=== PATIENT | female | born 1940 | race Caucasian/White ===

== ENCOUNTER 2017-09-18 10:56 | Observation (INO) | payer MEDICARE, SELFPAY ==
[2017-09-18] VITALS (9 sets, daily range): BP systolic 95–171; BP diastolic 66–85; PULSE 57–68; RESP 16–21; TEMP 36.5–36.7; O2SAT 93–99; BMI 31.2; BMI 31.5
--- NOTE | 2017-09-18 11:10 | RAD_ITS ---
STUDY: X-RAY CHEST REASON FOR EXAM: Female, 77 years old. Chest pain TECHNIQUE: Single AP portable view of the chest. COMPARISON: None. FINDINGS: A calcified granuloma is seen in the right upper lobe. The lungs are clear and expanded. There is no demonstrated pleural abnormality. Normal size heart. Normal mediastinum and lit. Normal visualized pulmonary arteries. Normal visualized aortic arch and descending thoracic aorta. Normal visualized thoracic spine. There is degenerative osteoarthritis of the bilateral shoulders. There is no demonstrated abnormality of the visualized soft tissue structures of the upper abdomen. RAD/Chest 1 View (Portable) IMPRESSION: Degenerative changes, as described above. No demonstrated acute cardiopulmonary process. Electronically Signed: Kip Tim MD at 12:00 EDT Tel , Service support ,
--- NOTE | 2017-09-18 11:10 | EKG12_ITS ---
Test Reason : CP Blood Pressure : / mmHG Vent. Rate : 060 BPM Atrial Rate : 060 BPM P-R Int : 160 ms QRS Dur : 072 ms QT Int : 416 ms P-R-T Axes : 023 027 067 degrees QTc Int : 416 ms Normal sinus rhythm Normal ECG Confirmed by OBI FISH MD ([id number]), writer editor MAKENNA BOWDEN ([id number]) on 09/22/2017 2:26:13 PM Referred By: SARAH Confirmed By:OBI FISH MD
--- NOTE | 2017-09-18 11:13 | ED.DCSUM_ITS ---
- ER Visit Summary Date of Service: 09/18/17 Chief Complaint: Chest pain History of Present Illness: The patient is a 77 F who presents with chest pain. Over the past 2 weeks she has been having a heaviness in her substernal area that comes and goes. It does get worse with exertion. It improves with rest. She has associated dyspnea with this. Her left arm gets heavy during these episodes. She saw Dr. Gomez today and he sent her here for a cardiac catheterization for unstable angina. Currently she is pain-free. She has not had any stress test recently. She has no history of any coronary disease Physical Examination: Vital signs reviewed. HEENT exam unremarkable. Heart is regular rate and rhythm without murmurs. Lungs are clear to auscultation. Abdomen is soft and nontender. Extremities reveal no edema. Peripheral pulses are equal. Skin exam normal. Neurologic exam normal. Test Results: EKG is normal sinus rhythm with T-wave inversions in V1 and V2. No other ST changes. Chest x-ray reveals chronic changes. Labs are normal. Emergency Department Course and Treatment: Patient was given aspirin. She still had no pain in the emergency department. Due to her symptoms I feel she should be admitted for cardiac rule out. Treatment Plan: [] Disposition: Admit Impression: Chest pain This note was generated with [employer] dictation software. It may contain incorrect words, spelling, and punctuation that were not noted in review of the chart prior to signing ED Disposition - Plan for ED Patient: Chief Complaint: Chest Pain Referrals: Javier Lorenzo [Primary Care Provider] -
[2017-09-18 11:28] LABS: Absolute Lymphocyte Count 2.04 X10^3/ul (0.83-4.51); Absolute Neutrophil Count 2.9 X10^3/uL (2.0-7.7); Basophil# 0.02 X10^3/uL; Basophil% 0.3 % (0-1); Eosinophil# 0.07 X10^3/uL; Eosinophils% 1.2 % (0-5); Hematocrit 44.8 % (37-47); Hemoglobin 15.1 g/dl (12.0-15.0); Lymphocyte # 2.04 X10^3/ul (4.0); Lymphocyte % 35.6 % (19-41); Mean Corp Hgb Conc 33.7 g/gl (32-36); Mean Corpuscular Hgb 30.4 pg (27.0-32.0); Mean Corpuscular Volume 90.3 fL (81-99); Mean Platelet Vol. 10.3 fl (6.2-12.0); Monocyte# 0.65 X10^3/uL; Monocyte% 11.3 % (0-10); Neutrophil # 2.94 X10^3/uL (2.7-7.7); Neutrophil % 51.4 % (47-70); POSITIVE COUNT NO; POSITIVE DIFFERENTIAL NO; POSITIVE MORPHOLOGY NO; Platelet Count 150 K/mm3 (150-450); RBC Distribution Width CV 12.8 % (11.6-14.6); RBC Distribution Width SD 41.6 fl (35.1-43.9); Red Blood Count 4.96 M/mm3 (4.2-5.4); White Blood Count 5.7 K/mm3 (4.4-11.0)
[2017-09-18] MEDS: Aspirin 81 MG TAB.CHEW 324 MG PO (11:34)
[2017-09-18 11:46] LABS: Anion Gap 8 (5-15); BUN 21 mg/dL (7-18); BUN/Creat Ratio 26.8 RATIO (10-20); Calcium,Total 9.1 mg/dL (8.5-10.1); Chloride 107 mmol/L (98-107); Creatinine, Serum 0.78 mg/dL (0.55-1.02); EST Glomerular Filtration Rate 75 mL/min (>60); Est Glom Filt Rate - Afr Amer 91 mL/min (>60); Estimated Creatinine Clearance 34.99 ml/min; Glucose 96 mg/dL (74-106); Potassium 4.2 mmol/L (3.5-5.1); Sodium Level 141 mmol/L (136-145)
--- NOTE | 2017-09-18 14:01 | HP.PCM_ITS ---
Problem List (1) CVA (cerebral vascular accident) Status: Acute History of Present Illness Date of Admission: 09/18/17 The patient is a 77 year old F with past medical history of remote CVA for which she is on Plavix, essential hypertension and dyslipidemia who presented to the emergency room today due to chest pain. For the past 2 weeks she has had chest heaviness in the substernal region radiating to her left arm. This is worse with exertion, it is associated with shortness of breath. She denies personal history of coronary artery disease.She denies any palpitations, rapid heartbeat or dizziness. Her sees Dr. Gomez a recorder of deeds in [place] , who was contacted and he recommended the patient come to the emergency room for possible admission and further evaluation with a left heart catheterization. In the Emergency room her cardiac biomarkers were normal and her 12-lead EKG showed normal sinus rhythm with T-wave inversions in V1 and V2. We are placing her in the progressive care unit for further evaluation and management. Her who is at bedside is requesting a left heart catheterization to be performed instead of a stress test as was recommended by Dr. Gomez. Past Medical History Allergies cyclobenzaprine [From Flexeril] Allergy (Verified 09/18/17 10:57) Hives SULFA Allergy (Uncoded 09/18/17 10:57) Hives Home Medications: Ambulatory Orders Medication Instructions Recorded Aspirin [Aspirin, Baby] 81 mg PO DAILY@0800 09/18/17 Calcium Carbonate/Vitamin D3 1 each PO BID 09/18/17 [Calcium 600-Vit D3 200 Tablet] Clopidogrel Bisulfate [Plavix] 75 mg PO DAILY 09/18/17 Metoprolol(XL)Succ [Toprol Xl 100 mg PO DAILY 09/18/17 (Beta Thuy)] Multivitamin [Multiple Vitamins] 1 each PO DAILY 09/18/17 Paroxetine [Paxil] 10 mg PO DAILY 09/18/17 Simvastatin [Zocor] 20 mg PO QHS 09/18/17 Vit C/E/Zn/Coppr/Lutein/Zeaxan 1 each PO DAILY 09/18/17 [Preservision Areds 2 Softgel] Smoking Status: Never smoker Review of Systems Comment: All Systems were reviewed with pertinent positives mentioned in the HPI above. VTE Information - Inpt Only VTE Present on Admission: No VTE Mechan Device Prophylaxis: SCD's VTE Pharm Prophylaxis ordered?: Yes Patient Problems: Active and Suspected Problems CVA (cerebral vascular accident) (Acute) - Physical Exam General: Alert, Oriented x3 Neck: Supple Lungs: Clear to auscultation Cardiovascular: Regular rate Abdomen: Bowel Sounds Present, Soft Neurological: Cranial nerves II-XII grossly intact, Motor Exam 5/5 strength throughout Vital Signs Temp Pulse Resp BP Pulse Ox 97.7 F L 61 18 164/66 H 98 09/18/17 13:18 09/18/17 13:18 09/18/17 13:18 09/18/17 13:18 09/18/17 13:18 Oxygen Flow Rate (L/min) 2 Oxygen Delivery Method Nasal Cannula Weight: 75.7 kg Body Mass Index (BMI) 31.5 Assessment/Plan Active and Suspected Problems CVA (cerebral vascular accident) (Acute) 1. Chest pain; this most likely represents unstable angina, we will continue serial cardiac enzymes, cardiology will be consulted for further ischemic workup. 2. Old CVA; the patient is on Plavix for secondary stroke prevention which we will continue. 3. Dyslipidemia; she is on a statin. 4. Essential hypertension; she takes metoprolol. 5. SCDs for DVT prophylaxis. Code Visit OBSV E&M: 78623 Initial observation care L3
--- NOTE | 2017-09-18 15:20 | ECHOD_ITS ---
Reason For Study: CHEST PAIN Procedure This was a 2D Doppler, Color Flow transthoracic echocardiogram. Contrast injection was performed. The study was technically difficult. Exam performed portable in patient room. Left Ventricle Normal LV size. Left ventricular systolic function is normal. The estimated ejection fraction is 65 %. Unable to assess diastolic dysfunction. No regional wall motion abnormalities noted. Right Ventricle Normal RV size. Normal systolic function. Atria Normal left atrium. Normal right atrium. Mitral Valve Normal mitral valve. Trivial mitral valve insufficiency. Tricuspid Valve Normal tricuspid valve. Unable to estimate RV systolic pressure, pulmonary artery pressure probably normal. Aortic Valve Normal aortic valve. Pulmonic Valve Normal pulmonic valve. Great Vessels Normal aortic root. The pulmonary artery is normal size. Normal inferior vena cava. Pericardium/Pleural No pericardial effusion. Medication Diluted definity 4ml given slow IV push to enhance endocardial definition. MMode/2D Measurements & Calculations LVIDd: 4.8 cm IVSd: 0.77 cm Ao root diam: 3.1 cm LVIDs: 3.4 cm LVPWd: 0.83 cm RVDd: 3.9 cm FS: 29.0 % LAV(MOD-bp): 36.3 ml LVAd ap4: 28.0 cm2 SV(MOD-sp4): 67.2 ml LAV(MOD-bp) Indexed: 20.8 ml/m2 EDV(MOD-sp4): 93.4 ml LAV(MOD-sp2): 29.3 ml EDV(sp4-el): 91.9 ml LAV(MOD-sp4): 39.9 ml LVAs ap4: 12.8 cm2 ESV(MOD-sp4): 26.2 ml ESV(sp4-el): 26.8 ml EF(MOD-sp4): 72.0 % EF(sp4-el): 70.9 % SV(sp4-el): 65.1 ml LA A4 area: 15.8 cm2 RA A4 area: 12.3 cm2 Doppler Measurements & Calculations MV E max christ: 66.9 cm/sec Lat Peak E' Christ: 3.3 cm/sec Med Peak E' Christ: 4.4 cm/sec MV A max christ: 101.6 cm/sec E/E' lat: 20.3 E/E' med: 15.2 MV E/A: 0.66 Ao V2 max: 177.1 cm/sec LV V1 max: 125.7 cm/sec PA V2 max: 109.6 cm/sec Ao max P.5 mmHg LV V1 max P.3 mmHg PI end-d christ: 108.0 cm/sec Interpretation Summary Normal LV size. Left ventricular systolic function is normal. The estimated ejection fraction is 65 %. Unable to estimate RV systolic pressure, pulmonary artery pressure probably normal. Contrast injection was performed. Ordering Physician: Jose Harper Referring Physician: ZAINAB MCFARLANE Performed By: Ailyn Abdi, REECE, RVT
--- NOTE | 2017-09-18 15:47 | CON.PCM_ITS ---
Reason for Consult Date of Consultation: 09/18/17 Reason for Consultation: Chest heaviness History of Present Illness: The patient is a 77 year old F with past medical history of remote CVA for which she is on Plavix, essential hypertension and dyslipidemia who presented to the emergency room today due to chest pain. For the past 2 weeks she has had chest heaviness in the substernal region radiating to her left arm. This is worse with exertion, it is associated with shortness of breath. She denies personal history of coronary artery disease.She denies any palpitations, rapid heartbeat or dizziness. Her sees Dr. Gomez a radio mechanic apprentice in [place] , who was contacted and he recommended the patient come to the emergency room for possible admission and further evaluation with a left heart catheterization. She has not had to take any nitroglycerin for the above discomfort. However she does attest that the frequency of the chest discomfort is getting closer In the Emergency room her cardiac biomarkers were normal and her 12-lead EKG showed normal sinus rhythm with T-wave inversions in V1 and V2. We are placing her in the progressive care unit for further evaluation and management. [] Past Medical History Allergies/Adverse Reactions: Allergies cyclobenzaprine [From Flexeril] Allergy (Verified 09/18/17 10:57) Hives SULFA Allergy (Uncoded 09/18/17 10:57) Hives Home Medications: Ambulatory Orders Medication Instructions Recorded Aspirin [Aspirin, Baby] 81 mg PO DAILY@0800 09/18/17 Calcium Carbonate/Vitamin D3 1 each PO BID 09/18/17 [Calcium 600-Vit D3 200 Tablet] Clopidogrel Bisulfate [Plavix] 75 mg PO DAILY 09/18/17 Metoprolol(XL)Succ [Toprol Xl 100 mg PO DAILY 09/18/17 (Beta Thuy)] Multivitamin [Multiple Vitamins] 1 each PO DAILY 09/18/17 Paroxetine [Paxil] 10 mg PO DAILY 09/18/17 Simvastatin [Zocor] 20 mg PO QHS 09/18/17 Vit C/E/Zn/Coppr/Lutein/Zeaxan 1 each PO DAILY 09/18/17 [Preservision Areds 2 Softgel] Smoking Status: Never smoker Alcohol: None Drugs: None Review of Systems - Review of Systems General: Denies: Fever, Night Sweats, Fatigue Cardiovascular: Reports: Chest Discomfort, Chest Discomfort with Exertion, Shortness of Breath, Shortness of Breath with Exertion. Denies: Orthopnea, PND , Peripheral Edema, Palpitations, Lightheadedness, Dizziness, Near Syncope, Syncope Respiratory: Denies: Cough, Sputum Production, Hemoptysis Gastrointestinal: Denies: Hematemesis, Hematochezia, Melena Genitourinary: Denies: Dysuria, Hematuria Skin: Denies: Rash Subjectve: Pleasant lady in no apparent distress Objective: Vital Signs Temp Pulse Resp BP Pulse Ox 97.7 F L 61 18 164/66 H 98 09/18/17 13:18 09/18/17 13:18 09/18/17 13:18 09/18/17 13:18 09/18/17 14:09 Oxygen Flow Rate (L/min) 2 Oxygen Delivery Method Nasal Cannula Weight: 166 lb 14.239 oz Body Mass Index (BMI) 31.5 General: Awake, Alert, Oriented x 3 HEENT: PERRL, EOMI, Sclera Non Icteric Neck: Supple, Good ROM, No Lymph Node Enlargement Lungs: Clear to auscultation Cardiovascular: Regular Rhythm, Normal S1, Normal S2, No Rubs, No Gallops Murmur Murmur: Grade 1/6, Early Systolic, LLSB Vascular: No Carotid Bruits, Normal Femoral Pulses, Normal Radial Pulses, Normal Dorsalis Pedal Pulse, Normal Posterior Tibial Pulses Abdomen: Bowel Sounds Present, Soft, Non Tender, No HSM, No Organomegaly Extremities: No Cyanosis, No Clubbing, No edema Neurological: No Focal Motor or Sensory Deficit Rhythm: EKG: Sinus rhythm with no acute changes Assessment/Plan 1.Chest pain The patient presents with progressive chest discomfort with exertion going away with rest and although her EKG is without significant changes she does have risk factors in terms of her previous cerebrovascular accident, hypertension recommend that we defer stress testing and proceed to cardiac catheterization. The risk benefits and alternatives have been explained to her and her they understand and agreed to proceed. 2. Hypertension Her blood pressure appears to be under good control at this time we will continue her current medications without any changes. 3. Hyperlipidemia She will continue with high intensity statin at this time. Thank you for allowing me to participate in the care of your patient. Please don't hesitate to call if any issues arise
--- NOTE | 2017-09-18 15:47 | CASEMGMT ---
According to [facility] website, the following are in-network tertiary facilities: [facility], [place], [facility], [facility], [facility], [facility], and . Nicholas MARTINEZ CM
[2017-09-18] MEDS: Calcium Carb/Vitamin D 1 TABLET Tablet PO (17:55)
[2017-09-19] VITALS (14 sets, daily range): BP systolic 121–142; BP diastolic 54–83; PULSE 51–60; RESP 11–18; TEMP 35.7–36.8; O2SAT 95–100
[2017-09-19 05:35] LABS: Absolute Lymphocyte Count 1.85 X10^3/ul (0.83-4.51); Absolute Neutrophil Count 2.9 X10^3/uL (2.0-7.7); Basophil# 0.03 X10^3/uL; Basophil% 0.5 % (0-1); Eosinophil# 0.11 X10^3/uL; Hematocrit 44.6 % (37-47); Hemoglobin 14.7 g/dl (12.0-15.0); International Normalized Ratio 1.1; Lymphocyte # 1.85 X10^3/ul (4.0); Lymphocyte % 33.5 % (19-41); Mean Corpuscular Hgb 30.4 pg (27.0-32.0); Mean Corpuscular Volume 92.1 fL (81-99); Mean Platelet Vol. 10.4 fl (6.2-12.0); Monocyte# 0.67 X10^3/uL; Monocyte% 12.1 % (0-10); Neutrophil # 2.86 X10^3/uL (2.7-7.7); Neutrophil % 51.9 % (47-70); Platelet Count 149 K/mm3 (150-450); Prothrombin Time (Protime)PT. 13.9 SECONDS (11.7-14.9); RBC Distribution Width CV 12.7 % (11.6-14.6); Red Blood Count 4.84 M/mm3 (4.2-5.4); White Blood Count 5.5 K/mm3 (4.4-11.0)
[2017-09-19 05:36] LABS: Partial Thromboplast Time 28.7 Seconds (24.1-36.2)
[2017-09-19 05:37] LABS: POSITIVE COUNT NO; POSITIVE DIFFERENTIAL NO; POSITIVE MORPHOLOGY NO
[2017-09-19 05:46] LABS: Anion Gap 8 (5-15); BUN 21 mg/dL (7-18); BUN/Creat Ratio 31.8 RATIO (10-20); Calcium,Total 8.8 mg/dL (8.5-10.1); Chloride 108 mmol/L (98-107); Creatinine, Serum 0.66 mg/dL (0.55-1.02); EST Glomerular Filtration Rate 92 mL/min (>60); Est Glom Filt Rate - Afr Amer 111 mL/min (>60); Estimated Creatinine Clearance 34.99 ml/min; Glucose 95 mg/dL (74-106); Potassium 4.2 mmol/L (3.5-5.1); Sodium Level 143 mmol/L (136-145)
--- NOTE | 2017-09-19 05:55 | EKG12_ITS ---
Test Reason : AM EKG Blood Pressure : / mmHG Vent. Rate : 059 BPM Atrial Rate : 059 BPM P-R Int : 166 ms QRS Dur : 084 ms QT Int : 434 ms P-R-T Axes : 030 027 066 degrees QTc Int : 429 ms Sinus bradycardia Otherwise normal ECG When compared with ECG of 18-SEP-2017 11:10, MANUAL COMPARISON REQUIRED, DATA IS UNCONFIRMED Confirmed by ABE BEACH, OBI ([id number]), news copy editor MAKENNA BOWDEN ([id number]) on 09/30/2017 2:09:39 PM Referred By: ANUSHA Confirmed By:OBI FISH MD
[2017-09-19] MEDS: Metoprolol(XL)Succ 100 MG Tablet PO (06:34)
[2017-09-19] MEDS: Clopidogrel Bisulfate 75 MG Tablet PO (06:34)
[2017-09-19] MEDS: Aspirin 81 MG TAB.CHEW PO (06:34)
[2017-09-19] MEDS: 0.9% NaCl Peripheral Flush Adult/Peds IV (08:05)
[2017-09-19] MEDS: 0.9% Normal Saline 1,000 ML 15 ML IV (08:05)
--- NOTE | 2017-09-19 08:51 | CL.D_ITS ---
Patient Name: JOSE ELIAS MORRISON Study Date: 09/19/2017 Performing: Jose Harper MD Ht: 61.02 inches 155 cm : 1940 Wt: 167.55 lbs 76 kg Age: 77 Gender: female BSA: 1.75 PROCEDURE(S) PERFORMED JD63-SNX/COR/LV RC29-DQT W OR WO PTCA, SINGLE CORONARY ARTERY CLINICAL PROFILE AND INDICATIONS Indications: New Onset Angina <= 2 months Heart Failure: None Stress/Imaging Stress/Image Study Performed: No Angina Classification Anginal Classification w/in 2 Weeks: CCS III CAD Presentations: Unstable angina. CONCLUSIONS Severe calcified proximal and mid LAD stenosis RECOMMENDATIONS Referred for immediate PCI DESCRIPTION OF PROCEDURE The patient arrived to the procedure lab. The risks and benefits of the procedure as well as a full d escription of our services here and current unavailability of surgical backup were fully explained to the patient and/or their significant other prior to the catheterization. The Timeout was completed, verifying the correct patient and procedure. The patient's procedural site was prepped and draped in the usual fashion. Local anesthetic was given subcutaneously to right groin region with Lidocaine 2%. Using a modified Seldinger technique, arterial access was obtained via the right femoral artery, a 5 Fr sheath was inserted. Left Coronary Artery selective angiography was performed in multiple views u sing a 5 Fr. JL 5 catheter. Right Coronary Artery selective angiography was then performed in multipl e views using a 5 Fr. 3DRC (Levy) catheter. Left Ventriculography was performed in GARCÍA projection using a 5 Fr. Pigtail catheter. LV to AO pullback pressures were then recorded. CORONARY ANGIOGRAPHY DOMINANCE: Right Dominant LEFT HEART ASSESSMENT Left Ventricular Ejection Fraction: by LV Gram 60 % Normal LV wall motion Normal Left Ventricular systolic function LEFT MAIN: Mild calcification, Non-obstructive LEFT ANTERIOR DECENDING ARTERY: PROX LAD: Moderate calcification, 90 % Stenosis MID LAD: 80 % Stenosis DIAGONAL 1: Ostial - 70 ectatic % Stenosis CIRCUMFLEX ARTERY: Mild luminal irregularities OM 2: Mid - 70 % Stenosis RIGHT CORONARY ARTERY: Mild luminal irregularities less than 30% RT PDA: Proximal - 60 % Stenosis COMPLICATIONS PROCEDURE MEDICATIONS Versed 1 mg IV Oxygen: 2 L/min via nasal cannula SUMMARY OF HEMODYNAMIC DATA Time AIR REST ECG 08:21:04 AO 148/69 (104) SA 08:30:54 LV 142/5, 14 08:38:20 LV 136/5, 11 08:38:27 LV 140/-1, 23 08:39:07 LVp 141/0, 19 08:39:13 AOp 149/63 (97) 08:39:18 Signed By Jose Harper MD On 09/19/2017 08:50:20 Jose Harper MD
--- NOTE | 2017-09-19 09:15 | EKG12_ITS ---
Test Reason : CHEST PAIN Blood Pressure : / mmHG Vent. Rate : 053 BPM Atrial Rate : 053 BPM P-R Int : 160 ms QRS Dur : 084 ms QT Int : 460 ms P-R-T Axes : 024 019 042 degrees QTc Int : 431 ms Sinus bradycardia Otherwise normal ECG When compared with ECG of 19-SEP-2017 05:32, MANUAL COMPARISON REQUIRED, DATA IS UNCONFIRMED Confirmed by ABE BEACH, OBI ([id number]), fashion editor MAKENNA BOWDEN ([id number]) on 09/22/2017 2:43:33 PM Referred By: MARTINA Confirmed By:OBI FISH MD
--- NOTE | 2017-09-19 09:39 | CL.I_ITS ---
Patient Name: JOSE ELIAS MORRISON Study Date: 09/19/2017 Performing: Neftali Rodriguez MD Ht: 61.02 inches 155 cm : 1940 Wt: 167.55 lbs 76 kg Age: 77 Gender: female BSA: 1.75 PROCEDURE(S) PERFORMED [id number], SINGLE CORONARY ARTERY CLINICAL PROFILE AND CO-MORBIDITIES Indications: New Onset Angina <= 2 months, ACS <= 24 hrs Heart Failure: None Stress/Imaging Stress/Image Study Performed: No Stress/Image Study Performed: No Angina Classification Anginal Classification w/in 2 Weeks: CCS III CAD Presentations: Unstable angina. Unstable angina. Comorbidities/Risk Factors: Hypertension Dyslipidemia CONCLUSIONS Unsuccessful PCI of the mid LAD; unable to cross with deflated balloon. No inflation performed on an y balloon. CALE III Flow at end of procedure with no evidence of dissection or other new lesions. RECOMMENDATIONS Tx to [facility] for PTCRA of LAD. NTG gtt Heparin gtt. D/w Lesley Shelby at [facility], as well as Dr Harper her primary senior training specialist. WIll place IABP if pt's symptoms worsen. Sheath sutured into place and groin is stable. DESCRIPTION OF PROCEDURE The patient arrived to the procedure lab. The risks and benefits of the procedure as well as a full d escription of our services here and current unavailability of surgical backup were fully explained to the patient and/or their significant other prior to the catheterization. The Timeout was completed, verifying the correct patient and procedure. The patient's procedural site was prepped and draped in the usual fashion. Local anesthetic was given subcutaneously to right groin region with Lidocaine 2% Using a modified Seldinger technique,arterial access was obtained via the right femoral artery, a 5Fr sheath was inserted. Left Coronary Artery selective angiography was performed in multiple views usin g a 5 Fr. JL 5 catheter. Right Coronary Artery selective angiography was then performed in multiple v iews using a 5 Fr. 3DRC (Levy) catheter. Left Ventriculography was performed in GARCÍA projection us ing a 5 Fr. Pigtail catheter. LV to AO pullback pressures were then recorded.The images were reviewed and options discussed. A decision was then made to proceed with an Intervention, IVUS or other adjun ct procedure. Arterial sheath was exchanged for a 6 Fr Sheath 45cm ebu 3.5 Guide catheter was inserted and engaged into the LCA. universal bmw Guide wire was advanced to the LAD. bmw universal Guide wire was inserted as a khadijah wire in diag 1 2.0x12 emerge Balloon catheter was inserted. 1.5x8 emerge Balloon catheter was inserted. 1.25x10 Sprinter Balloon catheter was inserted.. . The arterial sheath was exchanged to a standard sheath and left inplace to be pulled at a later time.. INTERVENTION INFORMATION LESION SITE: LAD (Mid) PROCEDURE: Wires passed down LAD and DIAG, however unable to cross with 1.25 mm deflated balloon d/t calcificati on. Procedure aborted in lieu of need for rotoblation. 6Fr long sheath exchanged for short [address] [facility]. Final cath after wire removal showed no evidence of dissection and CALE III flow. Pt will be transferred to Dr Shelby at [facility] for PTCRA today. Lesion Devices: Arellano .014 BMW [place] Straight 190cm Medtronic 6 Fr EBU3.5 100cm Guide Catheter Farrukh Sci EMERGE MR 2.00x12 BALLOON Arellano .014 [employer] [place] Straight 190cm Farrukh Sci EMERGE MR 1.50x08 BALLOON Medtronic SPRINTER LEGEND RX 1.25x10 BALLOON COMPLICATIONS No Complications PROCEDURE MEDICATIONS Versed 1 mg IV Fentanyl 25 mcg IV Oxygen: 2 L/min via nasal cannula Heparin 6000 unit(s) IV 09/19/2017 08:53:18 Heparin 25,000u / 250ml D5W @ 800 u/hr IV started 09/19/2017 09:36:48 Nitro Tab 0.4 mg PO 09/19/2017 09:31:35 Nitro glycerin 25mg / 250ml D5W @ 5 mcg/min IV started 09/19/2017 09:32:42 Zofran 4 mg IV 09/19/2017 09:32:21 IV Bolus: .9 NaCl 300ml total 09/19/2017 08:52:32 SUMMARY OF HEMODYNAMIC DATA Time AIR REST ECG 08:21:04 AO 148/69 (104) SA 08:30:54 LV 142/5, 14 08:38:20 LV 136/5, 11 08:38:27 LV 140/-1, 23 08:39:07 LVp 141/0, 19 08:39:13 AOp 149/63 (97) 08:39:18 Signed By Neftali Rodriguez MD On 09/19/2017 09:39:25 Signed By Neftali Rodriguez MD On 09/19/2017 09:38:59 Neftali Rodriguez MD
--- NOTE | 2017-09-19 10:14 | PCM.DC ---
- Discharge Diagnoses Current Active Problems: Current Active and Chronic Problems CVA (cerebral vascular accident) (Acute) unstable angina severe calcific prox and mid LAD stenosis. CAD You will use the following diet at home:: Cardiac Discharge Activity: Return to Normal Activity Allergies/Adverse Reactions: Allergies cyclobenzaprine [From Flexeril] Allergy (Verified 09/18/17 10:57) Hives SULFA Allergy (Uncoded 09/18/17 10:57) Hives Medications to take at Discharge Aspirin [Aspirin, Baby] 81 mg PO DAILY@0800 09/18/17 Calcium Carbonate/Vitamin D3 [Calcium 600-Vit D3 200 Tablet] 1 each PO BID 09/18/17 Clopidogrel Bisulfate [Plavix] 75 mg PO DAILY 09/18/17 Metoprolol(XL)Succ [Toprol Xl (Beta Thuy)] 100 mg PO DAILY 09/18/17 Multivitamin [Multiple Vitamins] 1 each PO DAILY 09/18/17 Paroxetine [Paxil] 10 mg PO DAILY 09/18/17 Simvastatin [Zocor] 20 mg PO QHS 09/18/17 Vit C/E/Zn/Coppr/Lutein/Zeaxan [Preservision Areds 2 Softgel] 1 each PO DAILY 09/18/17 Primary Care Physician: Javier Lorenzo [Primary Care Provider] - In 1 Week
--- NOTE | 2017-09-19 10:18 | DS.PCM_ITS ---
Discharge Date and Diagnosis - Problem List Patient Problems: Active and Suspected Problems CVA (cerebral vascular accident) (Acute) Date of Admission: 09/18/17 Date of Discharge: 09/19/17 - Primary Discharge Diagnosis Active and Suspected Problems CVA (cerebral vascular accident) (Acute) Hospital Course and Treatment Summary of Care Provided: The patient is a 77 year old F with past medical history of remote CVA for which she is on Plavix, essential hypertension and dyslipidemia who presented to the emergency room today due to chest pain. For the past 2 weeks she has had chest heaviness in the substernal region radiating to her left arm. This is worse with exertion, it is associated with shortness of breath. She denies personal history of coronary artery disease.She denies any palpitations, rapid heartbeat or dizziness. Her sees Dr. Gomez a mechanical and auto body car checker in [place] , who was contacted and he recommended the patient come to the emergency room for possible admission and further evaluation with a left heart catheterization. In the Emergency room her cardiac biomarkers were normal and her 12-lead EKG showed normal sinus rhythm with T-wave inversions in V1 and V2. We are placing her in the progressive care unit for further evaluation and management. She was seen by cardiology and she underwent LHC and it showed severe calcific proximal and mid LAD. PCI was unsuccessful and she was therefore transferred to [facility] for a rotablator. She was transferred in a stable condition. Discharge Diet: No Restrictions Home Medications: Medications to take at Discharge Aspirin [Aspirin, Baby] 81 mg PO DAILY@0800 09/18/17 Calcium Carbonate/Vitamin D3 [Calcium 600-Vit D3 200 Tablet] 1 each PO BID 09/18 Clopidogrel Bisulfate [Plavix] 75 mg PO DAILY 09/18/17 Metoprolol(XL)Succ [Toprol Xl (Beta Thuy)] 100 mg PO DAILY 09/18/17 Multivitamin [Multiple Vitamins] 1 each PO DAILY 09/18/17 Paroxetine [Paxil] 10 mg PO DAILY 09/18/17 Simvastatin [Zocor] 20 mg PO QHS 09/18/17 Vit C/E/Zn/Coppr/Lutein/Zeaxan [Preservision Areds 2 Softgel] 1 each PO DAILY Primary Care Physician: Javier Lorenzo [Primary Care Provider] - In 1 Week Medical Necessity - Tobacco Use Smoking Status: Never smoker Meaningful Use Info Meaningful Use Diagnoses (Choose all that apply): None applicable Code Visit OBSV E&M: 79780 Observation care discharge
--- NOTE | 2017-09-19 11:05 | NURSING ---
Sheath site noted to be saturated at this time. Dressing taken down. Continuous slow oozing noted from sheath insertion site. equipment operator/laborer staff notified by Alanna Cabrera RN. Informed that Dr. Rodriguez was coming to bedside to exchange current sheath to 7F. Site redressed at this time. Will continue to monitor.
--- NOTE | 2017-09-19 11:09 | CRPHASE1 ---
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 Risk Factors/Lifestyle Smoking Status: Never smoker Hx Hypertension: Yes Hx Diabetes Mellitus Type 1: No Hx Diabetes Mellitus Type 2: No Hx Metabolic Disorders: Yes Hx Dyslipidemia: Yes Hx Obesity: Yes Height: 5 ft 1 in - BMI 31.5 Post-Menopausal: Yes Stress: Home/Family Risk Factor for Sedentary Lifestyle: Highest Risk Family History: High Cholesterol, Hypertension Phase I Education Given On:: [place], Nutrition, Antiplatelet medication Issues Affecting Care:: None Knowledge of Condition:: Yes Learning Preferences: Verbal, Written - AT BEDSIDE Hospital Course Presenting Symptoms:: ANGINA Medical/Surgical History [place]:: No Angina:: Yes Hypertension:: Yes Dyslipidemia:: Yes Discharge/Home/Social Eval Discharge Disposition: Home Marital Status:
--- NOTE | 2017-09-19 11:13 | CRPHASE1_ITS ---
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 Risk Factors/Lifestyle Smoking Status: Never smoker Hx Hypertension: Yes Hx Diabetes Mellitus Type 1: No Hx Diabetes Mellitus Type 2: No Hx Metabolic Disorders: Yes Hx Dyslipidemia: Yes Hx Obesity: Yes Height: 5 ft 1 in - BMI 31.5 Post-Menopausal: Yes Stress: Home/Family Risk Factor for Sedentary Lifestyle: Highest Risk Family History: High Cholesterol, Hypertension Phase I Education Given On:: [place], Nutrition, Antiplatelet medication Issues Affecting Care:: None Knowledge of Condition:: Yes Learning Preferences: Verbal, Written - AT BEDSIDE Hospital Course Presenting Symptoms:: ANGINA Medical/Surgical History [place]:: No Angina:: Yes Hypertension:: Yes Dyslipidemia:: Yes Discharge/Home/Social Eval Discharge Disposition: Home Marital Status:
--- NOTE | 2017-09-19 11:15 | CRPH1.INST_ITS ---
General Education CAD and cardiac anatomy and function:: Patient communicates acknowledgment - AT BEDSIDE, Family communicates acknowledgment Explanation of diagnoses and procedures:: Patient communicates acknowledgment, Family communicates acknowledgment Sign/Symptoms of MS:: Patient communicates acknowledgment, Family communicates acknowledgment Antiplatelet therapy: Patient communicates acknowledgment, Family communicates acknowledgment Proper use of NTG-SL: Patient communicates acknowledgment, Family communicates acknowledgment Emergency procedures and activation of EMS: Patient communicates acknowledgment , Family communicates acknowledgment Compliance of all prescribed medications: Patient communicates acknowledgment, Family communicates acknowledgment Smoking Patient Nicotine/Smoking Risk Factors Are:: Never smoked Dyslipidemia Recommendations Include:: Lipid profile not available, Reviewed NCEP/ATP guidelines, Therapeutic Lifestyle Change dietary guidelines Dyslipidemia Response Code:: Patient communicates acknowledgment, Family communicates acknowledgment Overweight/Obesity Patient Overweight/Obesity Risk Factors Are:: Obesity - > or = 30 Recommendations Include:: Weight loss of 5-10%, Reduced calorie diet, Exercise 5 -7 times/week Overweight/Obesity:: Patient communicates acknowledgment, Family communicates acknowledgment Hypertension Recommendations Include:: Maintain BP <130/85, DASH dietary guidelines, Decrease /maintain normal body weight, Moderation of ETOH Hypertension:: Patient communicates acknowledgment, Family communicates acknowledgment Diabetes Patient Diabetes Risk Factors Are:: No documented hx of diabetes Metabolic Syndrome Patient Metabolic Syndrome Risk Factors Are [3 of 5]:: Waist circumference > 35 [female] or 40 [male], High triglyceride >150, Hypertension, Low HDL <40 [ male] or < 50 [female] Recommendations Include:: Reinforce compliance to risk factor modifications, Encouraged follow-up with Primary Care Physician Metabolic Syndrome Response Code:: Patient communicates acknowledgment, Family communicates acknowledgment Sedentary Patient Sedentary Risk Factors Are:: Lack of regular exercise Recommendations Include:: Aerobic exercise 5-7 times/week for 20-30 minutes continuously, Benefits of regular exercise, Discussed home walking program, Monitored Outpatient Cardiac Rehab Sedentary Response Code:: Patient communicates acknowledgment, Family communicates acknowledgment Stress Recommendations Include:: Identification of stressors, and assessment of coping skills, Stress management techniques Stress Response Code:: Patient communicates acknowledgment, Family communicates acknowledgment
[2017-09-19 11:45] LABS: ACT Activated Clotting Time 208 sec (74-137)
--- NOTE | 2017-09-19 14:58 | PCM.CONS.C ---
Problem List (1) STEMI (ST elevation myocardial infarction) Status: Acute Reason for Consult History of Present Illness: The patient is a 77 year old F presents with chest pain EKG with changes of [place] to undergo emergency heart catheterization Past Medical History Allergies/Adverse Reactions: Allergies cyclobenzaprine [From Flexeril] Allergy (Verified 09/18/17 10:57) Hives SULFA Allergy (Uncoded 09/18/17 10:57) Hives Home Medications: Ambulatory Orders Medication Instructions Recorded Aspirin [Aspirin, Baby] 81 mg PO DAILY@0800 09/18/17 Calcium Carbonate/Vitamin D3 1 each PO BID 09/18/17 [Calcium 600-Vit D3 200 Tablet] Clopidogrel Bisulfate [Plavix] 75 mg PO DAILY 09/18/17 Metoprolol(XL)Succ [Toprol Xl 100 mg PO DAILY 09/18/17 (Beta Thuy)] Multivitamin [Multiple Vitamins] 1 each PO DAILY 09/18/17 Paroxetine [Paxil] 10 mg PO DAILY 09/18/17 Simvastatin [Zocor] 20 mg PO QHS 09/18/17 Vit C/E/Zn/Coppr/Lutein/Zeaxan 1 each PO DAILY 09/18/17 [Preservision Areds 2 Softgel] Smoking Status: Never smoker Alcohol: None Drugs: None Objective: Vital Signs Temp Pulse Resp BP Pulse Ox 98.2 F 59 L 15 127/59 H 98 09/19/17 14:00 09/19/17 14:00 09/19/17 14:00 09/19/17 14:00 09/19/17 14:00 Oxygen Flow Rate (L/min) 2 Oxygen Delivery Method Nasal Cannula Weight: 75.7 kg Body Mass Index (BMI) 31.5 Intake and Output for Last 24 Hours 09/17/17 09/18/17 09/19/17 23:59 23:59 23:59 Intake Total 150 / 150 200 / 200 Output Total 1200 / 1200 Balance 150 / 150 -1000 / -1000 09/18/17 15:00: Troponin I < 0.02 09/18/17 19:15: Troponin I < 0.02 09/19/17 00:48: Troponin I < 0.02 09/19/17 05:10: WBC 5.5, RBC 4.84, Hgb 14.7, Hct 44.6, MCV 92.1, MCH 30.4, MCHC 33.0, RDW 12.7, RDW Differential 43.0, Plt Count 149 L, MPV 10.4, Immature Gran % (Auto) 0.000, Neut % (Auto) 51.9, Lymph % (Auto) 33.5, [place] % (Auto) 12.1 H, Eos % (Auto) 2.0, Baso % (Auto) 0.5, Absolute Neuts (auto) 2.9, Total Counted Not Reportable 09/19/17 05:10: PT 13.9, INR 1.1, APTT 28.7 09/19/17 05:10: Sodium 143, Potassium 4.2, Chloride 108 H, Carbon Dioxide 27.0, Anion Gap 8, BUN 21 H, Creatinine 0.66, Est GFR (MDRD) Af Amer 111, Est GFR (MDRD) Non-Af 92, BUN/Creatinine Ratio 31.8 H, Glucose 95, Calcium 8.8 Rhythm: EKG: ECHO: Stress Test: Cardiac Cath: PCI: CT Surgery: Holter monitor: EPS: PPM: CXR: Chest CT Scan:
--- NOTE | 2017-09-19 15:02 | CON.PCM_ITS ---
Problem List (1) STEMI (ST elevation myocardial infarction) Status: Acute Reason for Consult History of Present Illness: The patient is a 77 year old F presents with chest pain EKG with changes of [place] to undergo emergency heart catheterization Past Medical History Allergies/Adverse Reactions: Allergies cyclobenzaprine [From Flexeril] Allergy (Verified 09/18/17 10:57) Hives SULFA Allergy (Uncoded 09/18/17 10:57) Hives Home Medications: Ambulatory Orders Medication Instructions Recorded Aspirin [Aspirin, Baby] 81 mg PO DAILY@0800 09/18/17 Calcium Carbonate/Vitamin D3 1 each PO BID 09/18/17 [Calcium 600-Vit D3 200 Tablet] Clopidogrel Bisulfate [Plavix] 75 mg PO DAILY 09/18/17 Metoprolol(XL)Succ [Toprol Xl 100 mg PO DAILY 09/18/17 (Beta Thuy)] Multivitamin [Multiple Vitamins] 1 each PO DAILY 09/18/17 Paroxetine [Paxil] 10 mg PO DAILY 09/18/17 Simvastatin [Zocor] 20 mg PO QHS 09/18/17 Vit C/E/Zn/Coppr/Lutein/Zeaxan 1 each PO DAILY 09/18/17 [Preservision Areds 2 Softgel] Smoking Status: Never smoker Alcohol: None Drugs: None Objective: Vital Signs Temp Pulse Resp BP Pulse Ox 98.2 F 59 L 15 127/59 H 98 09/19/17 14:00 09/19/17 14:00 09/19/17 14:00 09/19/17 14:00 09/19/17 14:00 Oxygen Flow Rate (L/min) 2 Oxygen Delivery Method Nasal Cannula Weight: 75.7 kg Body Mass Index (BMI) 31.5 Intake and Output for Last 24 Hours 09/17/17 09/18/17 09/19/17 23:59 23:59 23:59 Intake Total 150 / 150 200 / 200 Output Total 1200 / 1200 Balance 150 / 150 -1000 / -1000 09/18/17 15:00: Troponin I < 0.02 09/18/17 19:15: Troponin I < 0.02 09/19/17 00:48: Troponin I < 0.02 09/19/17 05:10: WBC 5.5, RBC 4.84, Hgb 14.7, Hct 44.6, MCV 92.1, MCH 30.4, MCHC 33.0, RDW 12.7, RDW Differential 43.0, Plt Count 149 L, MPV 10.4, Immature Gran % (Auto) 0.000, Neut % (Auto) 51.9, Lymph % (Auto) 33.5, [place] % (Auto) 12.1 H, Eos % (Auto) 2.0, Baso % (Auto) 0.5, Absolute Neuts (auto) 2.9, Total Counted Not Reportable 09/19/17 05:10: PT 13.9, INR 1.1, APTT 28.7 09/19/17 05:10: Sodium 143, Potassium 4.2, Chloride 108 H, Carbon Dioxide 27.0, Anion Gap 8, BUN 21 H, Creatinine 0.66, Est GFR (MDRD) Af Amer 111, Est GFR ( MDRD) Non-Af 92, BUN/Creatinine Ratio 31.8 H, Glucose 95, Calcium 8.8 Rhythm: EKG: ECHO: Stress Test: Cardiac Cath: PCI: CT Surgery: Holter monitor: EPS: PPM: CXR: Chest CT Scan:
--- NOTE | 2017-09-19 15:02 | NURSING ---
Sheath dressing to R groin changed again in preparation for transport. Moderate sanguineous drainage noted to dressing prior to change. Receiving RN at [facility] made aware of oozing from sheath site.
== END 2017-09-19 15:20 | disposition short-term general hospital (02) ==
LOC: ED 11:35 → PCU 12:35 → ICU 09-19 09:52
PROVIDERS: Internal Medicine Cardiovascular Disease; Admitting Provider Internal Medicine; Emergency Provider Emergency Medicine; Family Provider Family Medicine; PCP Family Medicine; Visit Provider Internal Medicine
DX: I25.10 Atherosclerotic heart disease of native coronary artery without angina pectoris (principal); I10 Essential (primary) hypertension; E78.5 Hyperlipidemia, unspecified; Z86.73 Personal history of transient ischemic attack (TIA), and cerebral infarction without residual deficits; Z79.899 Other long term (current) drug therapy; Z79.82 Long term (current) use of aspirin; Z79.02 Long term (current) use of antithrombotics/antiplatelets
CPT/HCPCS: 36415; 71045; 80048; 84484; 85025; 85347; 85610; 85730; 92920; 93005; 93306; 93458; 99152; 99153; 99218; 99285; J7030; Q9957; A4216; C1725; C1769; C1887; C1894; C8929; G0378; J1940; J2405; Q9967

== ENCOUNTER → 2019-07-16 | Outpatient (CLI) | payer MEDICARE, SELFPAY ==
[2017-09-18 13:20] VITALS: BMI 31.5
--- NOTE | 2019-07-16 13:37 | RAD_ITS ---
STUDY: X-RAY CHEST REASON FOR EXAM: Female, 79 years old. Chronic cough TECHNIQUE: PA and lateral views of the chest. COMPARISON: 09/18/2017 FINDINGS: There are interstitial fibrotic changes of the lungs. There is no demonstrated pleural abnormality. Normal size heart. Normal mediastinum and lit. Normal visualized pulmonary arteries. There is atherosclerotic calcification of the aortic arch with tortuosity. There are diffuse degenerative changes of the visualized thoracic spine. There is degenerative osteoarthritis of the bilateral shoulders. There is no demonstrated abnormality of the visualized soft tissue structures of the upper abdomen. RAD/Chest PA and Lateral IMPRESSION: Chronic interstitial changes, no superimposed acute pulmonary process Electronically Signed: Teofilo Boone MD at 11:02 EST , Service support ,
== END | disposition home or self-care (01) ==
PROVIDERS: PCP Family Medicine; Referring Provider Family Medicine; Visit Provider Family Medicine
DX: R05 Cough (principal)
CPT/HCPCS: 71046

== ENCOUNTER → 2019-09-30 | Outpatient (CLI) | payer MEDICARE, SELFPAY ==
[2017-09-18 13:20] VITALS: BMI 31.5
--- NOTE | 2019-09-30 11:54 | RAD_ITS ---
STUDY: X-RAY - RIGHT WRIST REASON FOR EXAM: Female, 79 years old. WRIST PAIN x3 WEEKS, SWELLING AND BRUISING INITIALLY TECHNIQUE: 3 view(s) of the wrist were obtained. COMPARISON: None. FINDINGS: Normal visualized distal radius and ulna. There is degenerative arthrosis of the radiocarpal articulation. Normal distal radioulnar articulation. Normal carpal bones. Normal carpal articulations. Calcification of the triangular fibrocartilage. Normal carpometacarpal articulation of the thumb. Normal second through fifth carpometacarpal articulations. Normal visualized metacarpal bones. Mild soft tissue swelling. RAD/Wrist min 3 Views IMPRESSION: Degenerative changes of the distal radial carpal joint. Chondrocalcinosis of the triangular fibrocartilage. Electronically Signed: Patel Kaye, at 14:00 EDT , Service support ,
== END | disposition home or self-care (01) ==
LOC: RAD 11:50
PROVIDERS: PCP Family Medicine; Referring Provider Family Medicine; Visit Provider Family Medicine
DX: M25.531 Pain in right wrist (principal)
CPT/HCPCS: 73110

== ENCOUNTER 2020-07-20 09:11 | Outpatient (RCR) | payer MEDICARE, SELFPAY ==
[2017-09-18 13:20] VITALS: BMI 31.5
[2020-07-20] MEDS: COVID-19 VACC, MRNA(PFIZER)/PF 30 MCG/0.3 ML SYRINGE IM (18:50)
[2020-08-10] MEDS: COVID-19 VACC, MRNA(PFIZER)/PF 30 MCG/0.3 ML SYRINGE IM (18:29)
== END 2020-10-24 23:59 ==
LOC: IMMUN 09:11
PROVIDERS: PCP Family Medicine; Visit Provider Family Medicine
DX: Z23 Encounter for immunization (principal)
CPT/HCPCS: 0001A; 0002A; 91300

== ENCOUNTER 2021-10-06 17:20 | Emergency (ER) | payer MEDICARE, SELFPAY ==
[2021-10-06 17:21] VITALS: BP 190/74; PULSE 55; RESP 14; TEMP 36.1; O2SAT 97; BMI 26.6
--- NOTE | 2021-10-06 17:41 | CT_ITS ---
STUDY: CT ABDOMEN AND PELVIS WITH CONTRAST REASON FOR EXAM: Female, 81 years old. L pain, vomiting RADIATION DOSAGE (If Supplied By Facility): CTDIvol = ( 12.06 ) mGy, DLP = ( 654.95 ) mGycm TECHNIQUE: Transaxial images were obtained from the dome of the diaphragm to the symphysis pubis without oral contrast. IV 75mL Isovue-370 was administered. Sagittal and coronal images were reconstructed. Individualized dose optimization techniques were used for this CT. COMPARISON: None. FINDINGS: The visualized lung bases are unremarkable. The visualized portions of the heart are within normal limits. Normal liver. Normal gallbladder and extrahepatic biliary system. Normal spleen. Normal pancreas. Normal bilateral adrenal glands. Normal right kidney. 5 mm nonobstructing stone lower pole left kidney. No hydronephrosis, ureteral stone, ureteral dilatation. Normal visualized stomach. Normal small intestine. There are multiple colonic diverticula consistent with diverticulosis. There is non-visualization of the appendix. There is diffuse atherosclerotic calcification of the abdominal aorta, without a demonstrated aneurysm. Normal inferior vena cava. Normal retroperitoneum. Normal urinary bladder. 5 cm calcified degenerated fibroid in the fundus the uterus. Normal abdominal wall. There are diffuse degenerative changes of the visualized lumbar spine. CT/Abdomen/Pelvis W IV Cont ONLY IMPRESSION: 1. 5 mm nonobstructing stone lower pole left kidney. 2. Sigmoid diverticulosis without diverticulitis. Electronically Signed: Anthony Peralta MD at 19:38 EDT ,
[2021-10-06] MEDS: 0.9% Normal Saline 1,000 ML 1000 ML IV (18:19)
[2021-10-06 18:24] LABS: Color, Urine Yellow (Yellow); Glucose, Dipstick Normal (Normal); Ketone-Dipstick Negative (Negative); Leukocyte Esterase-Dipstick Negative /ul (Negative); Mucous, Urine 0 SEEN /hpf (<or=2+); Nitrite-Dipstick Negative (Negative); Occult Blood-Urine Negative /ul (Negative); Protein-Dipstick Negative (Negative); Red Blood Cells-Urine 0 SEEN /hpf (0-5); Squamous Epithelial Cells - UA 0 SEEN /hpf (5-10); Urine Bilirubin Dipstick Negative (Negative); Urine Clarity Clear (Clear); Urine Urobilinogen Normal (Normal); White Blood Cells 0 SEEN /hpf (0-5)
[2021-10-06 18:31] LABS: Absolute Lymphocyte Count 0.84 X10^3/uL (0.83-4.51); Absolute Neutrophil Count 9.4 X10^3/uL (2.0-7.7); Basophil# 0.03 X10^3/uL; Basophil% 0.3 % (0-1); Eosinophil# 0.02 X10^3/uL; Eosinophils% 0.2 % (0-5); Hematocrit 49.3 % (37-47); Hemoglobin 16.6 g/dL (12.0-15.0); Lymphocyte # 0.84 X10^3/ul (0.83-4.51); Lymphocyte % 7.8 % (19-41); Mean Corp Hgb Conc 33.7 g/dL (32-36); Mean Corpuscular Volume 92.1 fL (81-99); Mean Platelet Vol. 10.3 fl (6.2-12.0); Monocyte# 0.48 X10^3/uL; Monocyte% 4.4 % (0-10); NRBC Flagged by Analyzer 0 % (0-5); Neutrophil # 9.38 X10^3/uL (2.7-7.7); Neutrophil % 86.9 % (47-70); Platelet Count 177 K/mm3 (150-450); RBC Distribution Width CV 11.9 % (11.6-14.6); RBC Distribution Width SD 40.8 fl (35.1-43.9); Red Blood Count 5.35 M/mm3 (4.2-5.4); White Blood Count 10.8 K/mm3 (4.4-11.0)
[2021-10-06 18:32] LABS: Bacteria RARE /hpf (None Seen)
[2021-10-06 18:43] LABS: ALB/GLOB Ratio 1.4 RATIO (0.9-2.4); AST(SGOT) 52 U/L (15-37); Alanine Aminotransfer ALT/SGPT 87 U/L (13-56); Albumin, Serum 4.4 g/dL (3.2-5.0); Alkaline Phosphatase 54 U/L (45-117); Anion Gap 6 (5-15); BUN 17 mg/dL (7-18); BUN/Creat Ratio 19.9 RATIO (10-20); Calcium,Total 9.9 mg/dL (8.5-10.1); Chloride 102 mmol/L (98-107); Creatinine, Serum 0.85 mg/dL (0.55-1.02); EST Glomerular Filtration Rate 68 mL/min (>60); Est Glom Filt Rate - Afr Amer 82 mL/min (>60); Estimated Creatinine Clearance 38.51 ml/min; Globulin 3.2 g/dL (2.2-4.2); Glucose 147 mg/dL (74-106); Lipase 68 U/L (73-393); Potassium 4.2 mmol/L (3.5-5.1); Protein, Total 7.6 g/dL (6.4-8.2); Sodium Level 140 mmol/L (136-145)
--- NOTE | 2021-10-06 20:46 | ED.RN ---
IV noted to be infiltrated, pt does not report pain, only approx 200ml IVF were infused. Dr Ansari made aware.
[2021-10-06 20:51] VITALS: BP 181/77; PULSE 65; RESP 18; O2SAT 94
--- NOTE | 2021-10-06 22:04 | EX.ED.DYSGE1 ---
HPI History of Present Illness Chief Complaint: Abd Pain Informant: patient Onset/Context/Timing Onset: Days Location: Left abdominal pain Maximum Severity: Severe Relieved by: Nothing Associated Symptoms Associated Symptoms: Nausea and vomiting Narrative Narrative: Patient presents for left side abdominal pain. She has nausea and vomiting and was treated at an outside facility with Brand[place]an. She had continued symptoms and was referred to the ED for further evaluation, largely based upon her age. She never had this before. No bowel movement changes or bleeding. No chest pain or shortness of breath. No urinary symptoms. [facility] Medical History CVA (cerebral vascular accident) Hyperlipemia Hypertension Lung fibrosis STEMI (ST elevation myocardial infarction) Home Medications aspirin 81 mg PO DAILY@0800 09/18/17 [History Last Taken 09/18/17] calcium carbonate-vitamin D3 [Calcium 600-Vit D3 200 Tablet] 1 ea PO BID 09/18/17 [History Last Taken 09/17/17] clopidogrel 75 mg PO DAILY 09/18/17 [History Last Taken 09/18/17] metoprolol succinate 100 mg PO DAILY 09/18/17 [History Last Taken 09/18/17] multivitamin [Multiple Vitamins] 1 ea PO DAILY 09/18/17 [History Last Taken 09/17/17] paroxetine HCl 10 mg PO DAILY 09/18/17 [History Last Taken 09/17/17] simvastatin 20 mg PO QHS 09/18/17 [History Last Taken 09/17/17] vit C,G-Th-iizmc-lutein-zeaxan [Preservision Areds 2 Softgel] 1 ea PO DAILY 09/18/17 [History Last Taken 09/17/17] Allergy/AdvReac Type Severity Reaction Status Date / Time cyclobenzaprine Allergy Hives Verified 10/06/21 17:21 [From Flexeril] SULFA Allergy Hives Uncoded 10/06/21 17:21 Surgical History (Updated 10/06/21 @ 18:15 by Roxie Gary) Stented coronary artery Social History Smoking Status: Never smoker ROS ROS ED Constitutional Constitutional ED: Denies chills or fever(s) Eyes Eyes: Denies change in vision ENT ENT ED: Denies ear pain Cardiovascular Cardiovascular: Denies chest pain Respiratory/Chest Respiratory/Chest: Denies dyspnea Gastrointestinal Gastrointestinal: Reports abdominal pain, nausea and vomiting Genitourinary Genitourinary ED: Denies dysuria Musculoskeletal Musculoskeletal: Denies arthralgias, back pain or myalgias Integumentary Denies rash Neurologic Neurologic: Denies headache(s) Psychiatric Psychiatric: Denies depression Endocrine Endocrinology: Denies polyuria Allergic/Immunologic Allergic/Immunologic ED: Denies urticaria EXAM Physical Exam Const Vital Signs: 10/06/21 17:21 10/06/21 20:51 Temperature 96.9 F L Temperature Source Temporal Pulse Rate 55 L 65 Respiratory Rate 14 18 Blood Pressure 190/74 H 181/77 H Blood Pressure Mean 112 111 Pulse Ox 97 94 Oxygen Delivery Method Room Air Room Air Positive well nourished and well developed General Appearance ED: well developed HEENT Negative for trauma or tenderness Eyes EOMs intact bilaterally Neck supple Resp normal respiratory effort and clear to auscultation bilaterally Cardio regular rate and regular rhythm GI normal to inspection, nondistended, normoactive bowel sounds, non-tender and non-distended Palpation: soft Back/Spine no CVA tenderness Neuro oriented x3 Sensorium / Orientation: alert Psych mental status grossly normal Skin no rashes or lesions noted MDM MDM MDM Narrative Medical decision making narrative: Patient CBC, CMP, lipase, urinalysis all unremarkable. CT abdomen and pelvis showed nothing acute. She has diverticulosis without diverticulitis. She has a left side kidney stone, in the kidney, no obstruction. No sign of bleeding or infection on the urinalysis to suggest that the stone is causing her symptoms or any type of colic. On reevaluation, patient is improved. No further vomiting. Patient will be referred for outpatient follow-up. Return for any new or worsening issues. Disposition discharge home. Impression #1 left side abdominal pain Lab Data Attestation: I reviewed the patient's lab results. Labs: Laboratory Results - last 24 hr 10/06/21 10/06/21 10/06/21 17:42 17:42 18:10 WBC 10.8 RBC 5.35 Hgb 16.6 H Hct 49.3 H MCV 92.1 MCH 31.0 MCHC 33.7 RDW Std Deviation 40.8 RDW Coeff of [place] 11.9 Plt Count 177 MPV 10.3 Immature Gran % (Auto) 0.400 Neut % (Auto) 86.9 H Lymph % (Auto) 7.8 L [place] % (Auto) 4.4 Eos % (Auto) 0.2 Baso % (Auto) 0.3 Absolute Neuts (auto) 9.4 H Absolute Lymphs (auto) 0.84 Nucleated RBC % 0 Sodium 140 Potassium 4.2 Chloride 102 Carbon Dioxide 32.0 Anion Gap 6 BUN 17 Creatinine 0.85 Estim Creat Clear Calc 38.51 Est GFR (MDRD) Af Amer 82 Est GFR (MDRD) Non-Af 68 BUN/Creatinine Ratio 19.9 Glucose 147 H Calcium 9.9 Total Bilirubin 0.70 AST 52 H ALT 87 H Alkaline Phosphatase 54 Total Protein 7.6 Albumin 4.4 Globulin 3.2 Albumin/Globulin Ratio 1.4 Lipase 68 L Urine Color Yellow Urine Clarity Clear Urine pH 7.0 Ur Specific [place] 1.010 Urine Protein Negative Urine Glucose (UA) Normal Urine Ketones Negative Urine Occult Blood Negative Urine Nitrite Negative Urine Bilirubin Negative Urine Urobilinogen Normal Ur Leukocyte Esterase Negative Urine RBC 0 SEEN Urine WBC 0 SEEN Ur Squamous Epith Cells 0 SEEN Urine Bacteria RARE Urine Mucus 0 SEEN Radiography Diagnostic Testing: Clinical Impression(s) from Imaging Studies Abdomen/Pelvis CT 10/06/21 17:41 IMPRESSION: 1. 5 mm nonobstructing stone lower pole left kidney. 2. Sigmoid diverticulosis without diverticulitis. Electronically Signed: Anthony Peralta MD at 19:38 EDT , Discharge Plan Triage Chief Complaint: Abd Pain ED Provider: Neftali Ansari Dx/Rx/DC Orders Instructions: ED Abdominal Pain Unkn Cause Fem Prescriptions: No Action multivitamin [Multiple Vitamins] 1 EACH tablet 1 ea PO DAILY RF: 0 paroxetine HCl 10 MG tablet 10 mg PO DAILY RF: 0 metoprolol succinate 100 MG tablet 100 mg PO DAILY RF: 0 clopidogrel 75 MG tablet 75 mg PO DAILY RF: 0 calcium carbonate-vitamin D3 [Calcium 600 + D(3)] 1 EACH tablet 1 ea PO BID RF: 0 simvastatin 20 MG tablet 20 mg PO QHS RF: 0 aspirin 81 MG Tab.Chew 81 mg PO DAILY@0800 RF: 0 vit C,A-Uv-xxzhx-lutein-zeaxan [PreserVision AREDS-2] 1 EACH capsule 1 ea PO DAILY RF: 0 Primary Care Provider: Javier Lorenzo Referrals: Javier Lorenzo DO [Primary Care Provider] - Disposition Disposition: Home, Self Care Discharge Date/Time: 10/06/21 21:01
== END 2021-10-06 21:01 | disposition home or self-care (01) ==
PROVIDERS: Emergency Provider Emergency Medicine; PCP Family Medicine; Visit Provider Emergency Medicine
DX: R10.9 Unspecified abdominal pain (principal); J84.10 Pulmonary fibrosis, unspecified; R11.2 Nausea with vomiting, unspecified; Z86.73 Personal history of transient ischemic attack (TIA), and cerebral infarction without residual deficits; E78.5 Hyperlipidemia, unspecified; I10 Essential (primary) hypertension; I25.2 Old myocardial infarction; Z79.899 Other long term (current) drug therapy; Z79.82 Long term (current) use of aspirin; Z79.02 Long term (current) use of antithrombotics/antiplatelets; K57.30 Diverticulosis of large intestine without perforation or abscess without bleeding; N20.0 Calculus of kidney
CPT/HCPCS: 74177; 80053; 81001; 83690; 85025; 96360; 96361; 99283; J7030; Q9967; A4216